=== PATIENT | female | born 1990 | race Caucasian/White ===

== ENCOUNTER 2020-03-02 15:58 | Emergency (ER) | payer BC, SELFPAY ==
[2020-03-02 16:21] VITALS: BP 109/62; PULSE 107; RESP 16; TEMP 37.7; O2SAT 100
--- NOTE | 2020-03-02 16:22 | ED.URI ---
HPI - URI/Sore Throat General Chief Complaint: Upper Respiratory Infection Stated Complaint: sharon thoat/body aches/fever Time Seen by Provider: 03/02/20 16:30 Source: patient and RN notes reviewed Mode of arrival: ambulatory Limitations: no limitations History of Present Illness HPI Narrative: This is a 29 years old female presents to the office for an evaluation of sore throat for two days. Associated with fever, bodyache and a little cough. Symptoms reminiscent her previous strep throat that she had about 3 months ago. Her doctor wants her to get tested for COVID; however she had NOT get the test because it sent to the wrong place. She has been taking tylenol for her symptoms. Related Data Home Medications Medication Instructions Recorded Confirmed Remeron 03/02/20 Unknown Control 03/02/20 Allergies Allergy/AdvReac Type Severity Reaction Status Date / Time No Known Allergies Allergy Verified 03/02/20 16:31 Review of Systems Review of Systems: Narrative: CONSTITUTIONAL: Reports intermittent fever with body aches ENT: Reports intermittent congestion, sore throat CARDIOVASCULAR: Denies chest pain, palpitation RESPIRATORY: Denies dyspnea, wheezing. Reports cough contribute to throat irritation GASTROINTESTINAL: Denies abdominal pain, nausea, vomiting, diarrhea. SKIN: Denies rash MUSCULOSKELETAL: Denies acute back pain NEUROLOGIC: Denies lightheaded PMFSH Social History Social History (Updated 03/02/20 @ 16:35 by ALAYNA Lynn) Tobacco type: e-cigarettes/vaping Gender identity (if verbalized by the patient): Female Comments At time of signature, I agree with nursing past medical, surgical, social and family history. There is no relevant family history pertinent to the presenting complaint. Exam Narrative: Exam Narrative: GENERAL: This is a well-nourished, well-developed patient, appears anxious, in no apparent distress. EARS: External ears normal, auditory canals clear and without drainage, TMs normal without perforation. Hearing grossly intact. NOSE: External nose normal with no obvious nasal discharge, nares without redness, no rhinorrhea. THROAT: Mucous membranes moist, posterior pharynx clear. NECK: Neck supple, non-tender without lymphadenopathy, masses or thyromegaly. CARDIOVASCULAR: Regular rate and rhythm without murmurs, gallops, or rubs. RESPIRATORY: Clear to auscultation. Breath sounds equal bilaterally. No wheezes, rales, or rhonchi. GASTROINTESTINAL: Abdomen soft, non-tender, nondistended. Bowel sounds are active. No guarding. SKIN: warm, intact with no suspicious lesions or rash, good texture and turgor. NEURO: awake, alert, and oriented to person, place and time. There were no obvious focal neurologic abnormalities. Steady gait Switchback Coma Scale Eye Opening: Spontaneous 4 Switchback Coma Scale Motor: Obeys Commands 6 Switchback Coma Scale Verbal: Oriented 5 Course Vital Signs Vital signs: Vital Signs Temperature 99.9 F H 03/02/20 16:21 Pulse Rate 107 H 03/02/20 16:21 Respiratory Rate 16 03/02/20 16:21 Blood Pressure 109/62 03/02/20 16:21 Pulse Oximetry 100 03/02/20 16:21 Temperature 97.1 F L 03/02/20 16:31 Pulse Rate 75 03/02/20 16:31 Respiratory Rate 16 03/02/20 16:31 Blood Pressure 112/65 03/02/20 16:31 Pulse Oximetry 100 03/02/20 16:31 MDM - URI/Sore Throat MDM Narrative Medical decision making narrative: Discharge instructions reviewed with patient, as well as provided in writing per nursing staff. The instructions also include specific and strict return/GO TO THE ER as well as f/u information. All questions have been answered, and the patient deny any further questions with discharge and discharge plan. Differential Diagnosis Differential diagnosis: Likely upper respiratory infection, otitis media, sinusitis, viral infection, bronchitis, influenza, pharyngitis and other (COVID) Lab Data Attestation: I reviewed the patient
[2020-03-02 16:31] VITALS: BP 112/65; PULSE 75; RESP 16; TEMP 36.2; O2SAT 100
--- NOTE | 2020-03-02 17:25 | PC.NURSE ---
vITAL SIGNS RECORDED AT 1631 ARE INCORRECT
== END 2020-03-02 16:52 | disposition home or self-care (01) ==
PROVIDERS: Emergency Provider Nurse Practitioner; PCP Physician Assistant
DX: J06.9 Acute upper respiratory infection, unspecified (principal); Z20.828 Contact with and (suspected) exposure to other viral communicable diseases; F17.290 Nicotine dependence, other tobacco product, uncomplicated
CPT/HCPCS: 87081; 87880; 99203; G0463

== ENCOUNTER 2020-03-03 08:58 | Outpatient (NON) | payer BC, SELFPAY ==
[2020-03-04 13:04] LABS: SARS-CoV-2 RNA PCR Negative
== END 2020-03-03 08:59 ==
PROVIDERS: PCP Physician Assistant; Visit Provider Nurse Practitioner
DX: J06.9 Acute upper respiratory infection, unspecified (principal); Z20.828 Contact with and (suspected) exposure to other viral communicable diseases
CPT/HCPCS: 87635; C9803; U0003

== ENCOUNTER 2020-07-26 11:24 | Outpatient (NON) | payer BC, SELFPAY ==
[2020-07-27 22:36] LABS: SARS-CoV-2 RNA PCR Negative
== END 2020-07-26 11:25 ==
LOC: ANHCOVIDDT 11:26
PROVIDERS: PCP Physician Assistant; Visit Provider Physician Assistant
DX: Z20.828 Contact with and (suspected) exposure to other viral communicable diseases (principal)
CPT/HCPCS: 87635; C9803; U0003